=== PATIENT | female | born 1960 | race African-American/Black ===

== ENCOUNTER 2017-05-24 04:52 | Inpatient (IN) | payer OTHER ==
[~2017-05-24] VITALS: Ht 162.6 cm; Wt 107.5 kg
[2017-05-24] MEDS ORDERED: ALBUTEROL/IPRATROPIUM 2.5MG/0.5MG, 3 ML NPPB ONE (05:30)
[2017-05-24] MEDS ORDERED: MORPHINE SULFATE 4 MG/ML, 1ML IVPush PRN (05:30)
[2017-05-24] MEDS ORDERED: SODIUM CHLORIDE FLUSH 10ML SYR IVF ONE (05:30)
[2017-05-24] MEDS ORDERED: ONDANSETRON 2MG/ML, 2ML IVPush ONE (05:30)
[2017-05-24] MEDS ORDERED: ALBUTEROL/IPRATROPIUM 2.5MG/0.5MG, 3 ML ONE (05:36)
[2017-05-24] MEDS ORDERED: MORPHINE SULFATE 4 MG/ML, 1ML ONE (05:49)
[2017-05-24] MEDS ORDERED: ONDANSETRON 2MG/ML, 2ML ONE (05:49)
[2017-05-24 06:14] LABS: BLOOD UREA NITROGEN 8 mg/dL (7-18)
[2017-05-24 06:18] LABS: IS PT STATUS REG ER OR PRE ER? YES
[2017-05-24] MEDS ORDERED: LISINOPRI (06:33)
[2017-05-24] MEDS ORDERED: VERAPAMIL (06:33)
[2017-05-24] MEDS ORDERED: POTASSIUM (06:34)
[2017-05-24] MEDS ORDERED: PREMARIN (06:58)
[2017-05-24 09:02] VITALS: BP 143/85
[2017-05-24] MEDS ORDERED: FLUT5POW4 NAS (09:38)
[2017-05-24] MEDS ORDERED: DULO30CA2 PO (09:38)
[2017-05-24] MEDS ORDERED: LEVO137T3 PO (09:38)
[2017-05-24] MEDS ORDERED: ESOM40CA PO (09:38)
[2017-05-24] MEDS ORDERED: ESTR0.6246 PO (09:38)
[2017-05-24] MEDS ORDERED: LISI-420 PO (09:38)
[2017-05-24] MEDS ORDERED: ALBU18HF INH (09:38)
[2017-05-24] MEDS ORDERED: BUDE10.22 INH (09:38)
[2017-05-24] MEDS ORDERED: MONT10TA9 PO (09:38)
[2017-05-24] MEDS ORDERED: relizen PO (09:38)
[2017-05-24] MEDS ORDERED: VERA120C2 PO (09:38)
[2017-05-24] MEDS ORDERED: ACET650S21 PO (09:50)
[2017-05-24] MEDS ORDERED: POTA25PA PO (09:50)
[2017-05-24] MEDS ORDERED: OMEG-72 PO (09:50)
[2017-05-24] MEDS ORDERED: TURM500C7 PO (09:50)
[2017-05-24] MEDS ORDERED: VIT1TABL67 PO (09:50)
[2017-05-24] MEDS ORDERED: ONDANSETRON 2MG/ML, 2ML IVPush PRN (10:30)
[2017-05-24] MEDS ORDERED: BISACODYL 10 MG SUPP PR PRN (10:30)
[2017-05-24] MEDS ORDERED: morphine SULFATE 10 MG/ML, 1ML IVPush PRN (10:30)
[2017-05-24] MEDS ORDERED: DOCUSATE 100 MG CAPSULE PO PRN (10:30)
[2017-05-24] MEDS ORDERED: hydrALAzine 20 MG/ML, 1ML IVPush PRN (10:30)
[2017-05-24] MEDS: ALBUTEROL SULFATE 2.5 MG/3 ML NPPB SCH ×3 (10:30→20:17)
[2017-05-24] MEDS ORDERED: ENALAPRILAT 1.25 MG/ML, 2ML IVPush PRN (10:30)
[2017-05-24] MEDS ORDERED: POLYETHYLENE GLYCOL 17 GM PACKET PO PRN (10:30)
[2017-05-24] MEDS ORDERED: FUROSEMIDE 20 MG/2 ML IV ONE (10:30)
[2017-05-24] MEDS ORDERED: DULOXETINE 30 MG CAPSULE.DR PO SCH (11:00)
[2017-05-24] MEDS ORDERED: BERBERINE HCL PO SCH (11:00)
[2017-05-24] MEDS ORDERED: HOPS PO SCH (11:00)
[2017-05-24] MEDS ORDERED: ALBUTEROL SULFATE 2.5 MG/3 ML NPPB PRN (11:00)
[2017-05-24] MEDS ORDERED: VIT D3 PO SCH (11:00)
[2017-05-24] MEDS ORDERED: [UNRECOGNIZED DRUG - OTHER] PO SCH (11:00)
[2017-05-24] MEDS: GABAPENTIN 100 MG CAPSULE PO SCH ×4 (11:00→20:44)
[2017-05-24] MEDS: FLUTICASONE/VILANTEROL 200-25MCG/INH INH SCH (11:22)
[2017-05-24] MEDS: PANTOPROZOLE 40MG TABLET PO SCH (11:23)
[2017-05-24] MEDS: LOSARTAN 50MG TABLET PO SCH (11:24)
[2017-05-24] MEDS: methylPREDNISolone SOD SUCC 40 MG/ML IVPush SCH ×3 (11:24→20:44)
[2017-05-24] MEDS: VERAPAMIL ER 120MG TABLET.ER PO SCH (11:24)
[2017-05-24] MEDS: ENOXAPARIN 40 MG/0.4 ML SQ SCH (11:24)
[2017-05-24] MEDS: LEVOTHYROXINE 137 MCG TABLET PO SCH (11:30)
[2017-05-24] MEDS ORDERED: CETI-158 PO (11:42)
[2017-05-24] MEDS ORDERED: FEXO-64 PO (11:42)
[2017-05-24] MEDS: ACETAMINOPHEN 325 MG TABLET PO PRN ×2 (12:04→20:55)
[2017-05-24] MEDS: K-LYTE 25 MEQ TABLET.EFF PO SCH (12:27)
[2017-05-24] MEDS: OMEGA-3/FISH OIL CAPSULE PO SCH (12:27)
[2017-05-24 14:52] LABS: IS PT STATUS REG ER OR PRE ER? NO
[2017-05-24 14:58] VITALS: BP 154/89
[2017-05-24] MEDS ORDERED: OMNIPAQUE 350 MG/ML, 100ML BOTTLE ONE (17:48)
[2017-05-24 20:09] VITALS: BP 140/82
[2017-05-24 20:38] LABS: IS PT STATUS REG ER OR PRE ER? NO
[2017-05-24] MEDS: MONTELUKAST 10 MG TABLET PO SCH (20:44)
[2017-05-24] MEDS: FLUTICASONE NASAL SPRAY 16GM NAS SCH (20:44)
[2017-05-25 02:00] VITALS: BP 137/83
[2017-05-25] MEDS: GABAPENTIN 100 MG CAPSULE PO SCH ×2 (05:48→10:23)
[2017-05-25] MEDS: methylPREDNISolone SOD SUCC 40 MG/ML IVPush SCH ×4 (05:48→22:11)
[2017-05-25 05:50] LABS: ASPARTATE AMINO TRANSFERASE 17 U/L (15-37); BLOOD UREA NITROGEN 9 mg/dL (7-18)
[2017-05-25 08:00] VITALS: BP 178/111
[2017-05-25] MEDS: ALBUTEROL SULFATE 2.5 MG/3 ML NPPB SCH (08:00)
[2017-05-25] MEDS: CHOLECALCIFEROL 1,000 UNIT TABLET PO SCH (08:19)
[2017-05-25] MEDS: FLUTICASONE/VILANTEROL 200-25MCG/INH INH SCH (08:19)
[2017-05-25] MEDS: OMEGA-3/FISH OIL CAPSULE PO SCH (08:19)
[2017-05-25] MEDS: VERAPAMIL ER 120MG TABLET.ER PO SCH (08:20)
[2017-05-25] MEDS: K-LYTE 25 MEQ TABLET.EFF PO SCH (08:20)
[2017-05-25] MEDS: LEVOTHYROXINE 137 MCG TABLET PO SCH (08:20)
[2017-05-25] MEDS: PANTOPROZOLE 40MG TABLET PO SCH (08:20)
[2017-05-25] MEDS: LOSARTAN 50MG TABLET PO SCH ×2 (08:20→21:25)
[2017-05-25] MEDS ORDERED: LEVOTHYROXINE 137 MCG TABLET PO SCH (09:00)
[2017-05-25] MEDS: ACETAMINOPHEN 325 MG TABLET PO PRN (10:21)
[2017-05-25] MEDS: ENOXAPARIN 40 MG/0.4 ML SQ SCH (10:21)
[2017-05-25 10:27] VITALS: BP 146/94
[2017-05-25] MEDS: VERAPAMIL ER 120MG TABLET.ER PO ONE ×2 (11:07→13:45)
[2017-05-25 13:40] VITALS: BP 167/95
[2017-05-25] MEDS: CYCLOBENZAPRINE 10 MG TABLET PO SCH ×3 (13:45→21:25)
[2017-05-25] MEDS ORDERED: GADOBUTROL 10 MMOL/10 ML PFS ONE (14:32)
[2017-05-25] MEDS ORDERED: ALBUTEROL SULFATE 2.5 MG/3 ML NPPB PRN (15:00)
[2017-05-25] MEDS ORDERED: GABAPENTIN 100 MG CAPSULE PO SCH (16:00)
[2017-05-25 18:21] VITALS: BP 131/88
[2017-05-25] MEDS: FLUTICASONE NASAL SPRAY 16GM NAS SCH (20:47)
[2017-05-25] MEDS: MONTELUKAST 10 MG TABLET PO SCH (21:25)
[2017-05-25] MEDS: GABAPENTIN 300 MG CAPSULE PO SCH (21:29)
[2017-05-26 04:21] VITALS: BP 118/75
[2017-05-26] MEDS: methylPREDNISolone SOD SUCC 40 MG/ML IVPush SCH ×2 (04:21→10:49)
[2017-05-26 07:27] VITALS: BP 139/90
[2017-05-26] MEDS: FLUTICASONE/VILANTEROL 200-25MCG/INH INH SCH (10:47)
[2017-05-26] MEDS: CHOLECALCIFEROL 1,000 UNIT TABLET PO SCH (10:48)
[2017-05-26] MEDS: VERAPAMIL ER 240MG TABLET.ER PO SCH (10:48)
[2017-05-26] MEDS: LEVOTHYROXINE 137 MCG TABLET PO SCH (10:49)
[2017-05-26] MEDS: OMEGA-3/FISH OIL CAPSULE PO SCH (10:49)
[2017-05-26] MEDS: CYCLOBENZAPRINE 10 MG TABLET PO SCH ×3 (10:49→23:18)
[2017-05-26] MEDS: ENOXAPARIN 40 MG/0.4 ML SQ SCH (10:49)
[2017-05-26] MEDS: K-LYTE 25 MEQ TABLET.EFF PO SCH (10:49)
[2017-05-26] MEDS: GABAPENTIN 300 MG CAPSULE PO SCH ×3 (10:49→23:19)
[2017-05-26] MEDS: PANTOPROZOLE 40MG TABLET PO SCH (10:49)
[2017-05-26] MEDS: LOSARTAN 50MG TABLET PO SCH ×2 (10:49→20:54)
[2017-05-26 13:14] VITALS: BP 133/92
[2017-05-26 18:26] VITALS: BP 133/86
[2017-05-26] MEDS: FLUTICASONE NASAL SPRAY 16GM NAS SCH (20:51)
[2017-05-26] MEDS: MONTELUKAST 10 MG TABLET PO SCH (20:54)
[2017-05-27 02:16] VITALS: BP 104/59
[2017-05-27] MEDS: FLUTICASONE/VILANTEROL 200-25MCG/INH INH SCH (08:17)
[2017-05-27] MEDS ORDERED: FLUT1BLS INH (08:17)
[2017-05-27] MEDS ORDERED: PRED20TA PO (08:17)
[2017-05-27] MEDS: OMEGA-3/FISH OIL CAPSULE PO SCH (08:18)
[2017-05-27] MEDS: K-LYTE 25 MEQ TABLET.EFF PO SCH (08:18)
[2017-05-27] MEDS: LEVOTHYROXINE 137 MCG TABLET PO SCH (08:18)
[2017-05-27] MEDS: CYCLOBENZAPRINE 10 MG TABLET PO SCH (08:18)
[2017-05-27] MEDS: LOSARTAN 50MG TABLET PO SCH (08:18)
[2017-05-27] MEDS: CHOLECALCIFEROL 1,000 UNIT TABLET PO SCH (08:18)
[2017-05-27] MEDS: VERAPAMIL ER 240MG TABLET.ER PO SCH (08:19)
[2017-05-27] MEDS: GABAPENTIN 300 MG CAPSULE PO SCH (08:19)
[2017-05-27] MEDS: PANTOPROZOLE 40MG TABLET PO SCH (08:19)
[2017-05-27 08:47] VITALS: BP 133/91
[2017-05-27] MEDS: ENOXAPARIN 40 MG/0.4 ML SQ SCH (10:30)
== END 2017-05-27 12:25 | disposition home or self-care (01) | DRG 203 ==
LOC: ED 06:00 → EDIP 06:50 → 5SO 08:21 → 3NE 05-25 16:26 → DCLOUNGE 05-27 12:08
PROVIDERS: ADMIT Internal Medicine; ATTEND Internal Medicine
DX: J45.901 Unspecified asthma with (acute) exacerbation (principal); I10 Essential (primary) hypertension; E03.9 Hypothyroidism, unspecified; I83.90 Asymptomatic varicose veins of unspecified lower extremity; K21.9 Gastro-esophageal reflux disease without esophagitis; M25.512 Pain in left shoulder; M50.30 Other cervical disc degeneration, unspecified cervical region; R60.0 Localized edema; Z90.49 Acquired absence of other specified parts of digestive tract; Z90.710 Acquired absence of both cervix and uterus; Z82.5 Family history of asthma and other chronic lower respiratory diseases; Z82.49 Family history of ischemic heart disease and other diseases of the circulatory system; Z79.899 Other long term (current) drug therapy
CPT/HCPCS: 36415; 70551; 71010; 71275; 72156; 80048; 80053; 80061; 81003; 82040; 82728; 83036; 83540; 83550; 83735; 83880; 84439; 84443; 84466; 84484; 85025; 93005; 93306; 94640; 96374; 96375; A9585; J1650; J2405; J7613; J7620; Q9967; J1940; J2920; J7512

== ENCOUNTER → 2017-08-12 | Outpatient (CLI) | payer OTHER ==
[~2017-08-12] MED LIST: ACET650S21 PO; ALBU18HF INH; BUDE10.22 INH; CETI-158 PO; DULO30CA2 PO; ESOM40CA PO; ESTR0.6246 PO; FEXO-64 PO; FLUT1BLS INH; FLUT5POW4 NAS; LEVO137T3 PO; LISI-420 PO; LISINOPRI; MONT10TA9 PO; OMEG-72 PO; POTA25PA PO; POTASSIUM; PRED20TA PO; PREMARIN; TURM500C7 PO; VERA120C2 PO; VERAPAMIL; VIT1TABL67 PO; relizen PO
== END | disposition home or self-care (01) ==
LOC: CFH 15:42
PROVIDERS: ATTEND Family Medicine
DX: Z12.31 Encounter for screening mammogram for malignant neoplasm of breast (principal)
CPT/HCPCS: G0202

== ENCOUNTER → 2018-08-14 | Outpatient (CLI) | payer OTHER | END | disposition home or self-care (01) | LOC: CFH 15:08 | PROVIDERS: ATTEND Family Medicine | DX: Z12.31 Encounter for screening mammogram for malignant neoplasm of breast (principal); Z80.3 Family history of malignant neoplasm of breast | CPT/HCPCS: 77063; 77067 ==

== ENCOUNTER → 2019-01-12 | Outpatient (CLI) | payer OTHER | END | disposition home or self-care (01) | LOC: WOUND 08:00 | PROVIDERS: ATTEND Family Medicine | DX: L97.521 Non-pressure chronic ulcer of other part of left foot limited to breakdown of skin (principal); L95.0 Livedoid vasculitis; S61.217A Laceration without foreign body of left little finger without damage to nail, initial encounter; M79.7 Fibromyalgia; I73.00 Raynaud's syndrome without gangrene; Z90.710 Acquired absence of both cervix and uterus; X58.XXXA Exposure to other specified factors, initial encounter; Y93.89 Activity, other specified; Y92.89 Other specified places as the place of occurrence of the external cause; Y99.8 Other external cause status | CPT/HCPCS: 97597; 99215 ==

== ENCOUNTER → 2019-01-19 | Outpatient (CLI) | payer OTHER | END | disposition home or self-care (01) | LOC: WOUND 07:45 | PROVIDERS: ATTEND Family Medicine | DX: L97.521 Non-pressure chronic ulcer of other part of left foot limited to breakdown of skin (principal); I73.00 Raynaud's syndrome without gangrene; M79.7 Fibromyalgia; Z90.710 Acquired absence of both cervix and uterus | CPT/HCPCS: 99214 ==

== ENCOUNTER → 2019-02-09 | Outpatient (CLI) | payer OTHER | END | disposition home or self-care (01) | LOC: WOUND 07:45 | PROVIDERS: ATTEND Family Medicine | DX: L97.521 Non-pressure chronic ulcer of other part of left foot limited to breakdown of skin (principal); I73.00 Raynaud's syndrome without gangrene; M79.7 Fibromyalgia; Z90.710 Acquired absence of both cervix and uterus | CPT/HCPCS: 99213 ==

== ENCOUNTER 2019-02-23 07:45 | Outpatient (CLI) | payer OTHER | END 2019-02-23 23:59 | disposition home or self-care (01) | LOC: WOUND 07:45 | PROVIDERS: ATTEND Family Medicine | DX: L97.528 Non-pressure chronic ulcer of other part of left foot with other specified severity (principal); M79.7 Fibromyalgia; I73.00 Raynaud's syndrome without gangrene; Z90.710 Acquired absence of both cervix and uterus | CPT/HCPCS: 99214 ==

== ENCOUNTER → 2020-08-18 | Outpatient (CLI) | payer OTHER ==
[~2020-08-18] MED LIST changes: +MONT10TA11 PO; -MONT10TA9 PO
== END | disposition home or self-care (01) ==
LOC: CFH 15:22
PROVIDERS: ATTEND Obstetrics & Gynecology
DX: Z12.31 Encounter for screening mammogram for malignant neoplasm of breast (principal)
CPT/HCPCS: 77063; 77067